=== PATIENT | male | born 1970 | race Two or more races ===

== ENCOUNTER 2018-04-30 17:57 | Emergency (ER) | payer SELFPAY ==
[~2018-04-30] VITALS: Ht 188 cm; Wt 131.5 kg
[2018-04-30] MEDS ORDERED: Norco 5mg/325mg tab ORAL ONE (18:30)
[2018-04-30] MEDS ORDERED: IBUPROFEN600 MG ORAL (19:28)
--- NOTE | 2018-04-30 19:28 | Emergency Room Report ---
History of Present Illness General Chief Complaint: Lower Extremity Injury Source: Patient Present Illness HPI 47-year-old male presents to the emergency department complaining of 7/10 in severity left knee pain s/p fall no LOC. S/ P fall from chair. Denies feeling of instability, pain exacerbated with walking and standing. Denies fevers, chills, erythema or increased temperature to palpation . Denies numbness tingling or loss of sensation or gross motor movements of the extremities, incontinence of bowel or bladder. Denies CP, Palpitations, LOC, AMS, dizziness, Changes in Vision, weakness or a sudden severe headache. Allergies: Coded Allergies: No Known Allergies (Unverified , 04/30/18) Patient History Past Medical History: see triage record Past Surgical History: none Pertinent Family History: none Reviewed Nursing Documentation: PMH: Agreed; PSxH: Agreed Nursing Documentation-PMH Past Medical History: No History, Except For Hx Diabetes: Yes Review of Systems All Other Systems: negative except mentioned in HPI Physical Exam Vital Signs Date Time Temp Pulse Resp B/P (MAP) Pulse Ox O2 Delivery O2 Flow Rate FiO2 04/30/18 18:02 98.9 100 15 163/80 95 Room Air 99.0 Sp02 EP Interpretation: reviewed, normal General Appearance: no apparent distress, alert, GCS 15, non-toxic Head: normocephalic, atraumatic Eyes: bilateral eye normal inspection, bilateral eye PERRL ENT: hearing grossly normal, normal voice Neck: full range of motion Respiratory: lungs clear, normal breath sounds, speaking full sentences Cardiovascular #1: regular rate, rhythm Musculoskeletal: back normal, gait/station normal - compensatory with cane assistance, normal range of motion, other - no increased laxity upon varus or valgus stressing, negative anterior and posterior drawer signs, tender - TTP to the Left knee with some swelling noted. Neurologic: alert, oriented x3, responsive, motor strength/tone normal, sensory intact, speech normal, grossly normal Psychiatric: judgement/insight normal Skin: normal color, no rash, warm/dry, well hydrated Lymphatic: no adenopathy Medical Decision Making PA Attestation Dr. Fortune is my supervising Physician whom patient management has been discussed with. Diagnostic Impression: Primary Impression: Left knee sprain Qualified Codes: S83.92XA - Sprain of unspecified site of left knee, initial encounter ER Course 47-year-old male presents to the emergency department complaining of 7/10 in severity left knee pain s/p fall no LOC. S/ P fall from chair. Denies feeling of instability, pain exacerbated with walking and standing. Denies fevers, chills, erythema or increased temperature to palpation . Denies numbness tingling or loss of sensation or gross motor movements of the extremities, incontinence of bowel or bladder. Denies CP, Palpitations, LOC, AMS, dizziness, Changes in Vision, weakness or a sudden severe headache. Ddx considered but are not limited to Fracture, dislocation, contusion, Sprain/ Strain/Spasm. Vital signs: are WNL, pt. is afebrile H&PE are most consistent with musculoskeletal injury will perform imaging to r/ o fractures/dislocations. ORDERS: - X-ray Left KNee - negative for fx, Dislocation, or significant soft tissue injury, per preliminary read in ED, and signed by ISABEL Valladares, my supervising physician has reviewed, and agrees with my interpretation. ED INTERVENTIONS: Mango wrap applied by analytical lab technician. Pt. remains neurovascularly intact. DISCHARGE: At this time pt. is stable for d/c to home. Will provide printed patient care instructions, and any necessary prescriptions. Care plan and follow up instructions have been discussed with the patient prior to discharge. Other X-Ray Diagnostic Results Other X-Ray Diagnostic Results : X-Ray ordered: Left knee # of Views/Limited Vs Complete: 3 View Indication: Pain EP Interpretation: Yes ISABEL Xray: Interpretation reviewed, by supervising MD, and agrees with findings. Interpretation: no dislocation, no soft tissue swelling, no fractures Impression: No acute disease Electronically Signed by: Jacki Valladares PA-C Last Vital Signs Date Time Temp Pulse Resp B/P (MAP) Pulse Ox O2 Delivery O2 Flow Rate FiO2 04/30/18 18:45 98.9 04/30/18 18:02 100 15 163/80 95 Room Air Disposition: HOME, SELF-CARE Condition: Stable Scripts Ibuprofen* (MOTRIN*) 600 Mg Tablet 600 MG ORAL THREE TIMES A DAY, #30 TAB 0 Refills Prov: Jacki Valladares 04/30/18 Referrals: NOT CHOSEN IPA/MD,REFERRING (PCP) Patient Instructions: Knee Sprain Additional Instructions: Take medications as directed. Follow up with a Primary Care Provider in 3-5 days, even if your symptoms have resolved. --Please review list of primary care clinics, if you do not already have a primary care provider Return sooner to ED if new symptoms occur, or current symptoms become worse. - Please note that this Emergency Department Report was dictated using [employer] lead lineman technology software, occasionally this can lead to erroneous entry secondary to interpretation by the dictation equipment. Jacki Valladares Apr 30, 2018 19:28
[2018-04-30 19:38] VITALS: BP 163/80
--- NOTE | 2018-05-01 11:11 | Diagnostic Imaging Report ---
Indication: Knee Pain 3 views of the left knee were obtained. Findings: No acute fracture, malalignment, or joint effusion are identified. Joint space is relatively well-maintained. Mild joint space narrowing and osteophytes noted. Impression: Negative for acute injury. Arthrosis
== END 2018-04-30 20:04 | disposition home or self-care (01) ==
LOC: EMR 19:00
DX: S83.92XA Sprain of unspecified site of left knee, initial encounter (principal); W07.XXXA Fall from chair, initial encounter; Y93.9 Activity, unspecified; Y92.9 Unspecified place or not applicable; E11.9 Type 2 diabetes mellitus without complications
CPT/HCPCS: 99283

== ENCOUNTER 2019-04-29 19:44 | Emergency (ER) | payer SELFPAY ==
[~2019-04-29] VITALS: Ht 188 cm; Wt 128.4 kg
[~2019-04-29 19:44] MED LIST: IBUPROFEN600 MG ORAL
--- NOTE | 2019-04-29 20:25 | NUR ---
ED Nurse Note: patient presents with complaints of abdominal pain onthe right flank after moving boxs and history of injury to the area. Patient reports history of DMII.
[2019-04-29 20:26] VITALS: BP 193/94
[2019-04-29] MEDS ORDERED: Lisinopril 10mg tab ORAL ONE (20:45)
[2019-04-29 21:13] LABS: BASOPHILS % (AUTO) 1.7 % (0.0-2.0); EOSINOPHILS % (AUTO) 1.8 % (0.0-3.0); HEMATOCRIT 48.8 % (42.0-52.0); HEMOGLOBIN 16.9 G/DL (14.2-18.0); LYMPHOCYTES % (AUTO) 38.5 % (20.0-45.0); MEAN CORPUSCULAR VOLUME 88 FL (80-99); MONOCYTES % (AUTO) 10.3 % (1.0-10.0); NEUTROPHILS % (AUTO) 47.6 % (45.0-75.0); PLATELET COUNT 347 K/UL (150-450); RED BLOOD COUNT 5.52 M/UL (4.70-6.10); RED CELL DISTRIBUTION WIDTH 10.7 % (11.6-14.8); WHITE BLOOD COUNT 10.3 K/UL (4.8-10.8)
[2019-04-29] MEDS ORDERED: Lisinopril 10mg tab ONE (21:17)
[2019-04-29 21:19] LABS: APPEARANCE,URINE CLEAR; BILIRUBIN, URINE NEGATIVE (NEGATIVE); COLOR,URINE PALE YELLOW; GLUCOSE, URINE (UA) 4+ (NEGATIVE); KETONES,URINE NEGATIVE (NEGATIVE); LEUKOCYTE ESTERASE ,URINE 1+ (NEGATIVE); NITRITE,URINE NEGATIVE (NEGATIVE); PH,URINE 5 (4.5-8.0); PROTEIN,URINE NEGATIVE (NEGATIVE); UROBILINOGEN,URINE NORMAL MG/DL (0.0-1.0)
[2019-04-29 21:26] LABS: ANION GAP 11 mmol/L (5-15); BLOOD UREA NITROGEN 13 mg/dL (7-18); CALCIUM 9.3 MG/DL (8.5-10.1); CARBON DIOXIDE 27 MMOL/L (21-32); CHLORIDE 103 MMOL/L (98-107); POTASSIUM 3.9 MMOL/L (3.5-5.1); SODIUM 140 MMOL/L (136-145)
[2019-04-29 21:31] LABS: ALANINE AMINOTRANSFERASE 33 U/L (12-78); ALBUMIN 3.5 G/DL (3.4-5.0); ALBUMIN/GLOBULIN RATIO 0.9 (1.0-2.7); ALKALINE PHOSPHATASE 94 U/L (46-116); ASPARTATE AMINO TRANSFERASE 10 U/L (15-37); BILIRUBIN,TOTAL 0.3 MG/DL (0.2-1.0)
[2019-04-29 21:56] VITALS: BP 140/79
--- NOTE | 2019-04-29 21:57 | NUR ---
ED Nurse Note: Patient blood pressure responded well to anti-hypertensivve medication. vital signs stable and documented.
--- NOTE | 2019-04-29 22:02 | Emergency Room Report ---
History of Present Illness General Chief Complaint: Pain Source: Patient Present Illness HPI 48-year-old male with history of hypertension and diabetes both controlled here complaining of sudden onset of right-sided rib pain rating at 8 out of 10 that started 2 days ago. Patient reports that years ago he had an accident in the area however states similar pain at that site today after lifting heavy objects. Patient has not taken his lisinopril for couple weeks as he no longer has a primary care provider due to no insurance. Patient is running out of his metformin. Reports that he checks his sugar frequently and is within normal limits. Denies neuropathy, chest pain, palpitation, abdominal pain, nausea vomiting, headache and dizziness, blurry vision. Patient has not taken medication for pain. Denies tingling or numbness. Denies urinary symptoms. Allergies: Coded Allergies: No Known Allergies (Unverified , 04/30/18) Patient History Past Medical History: see triage record Past Surgical History: unable to obtain Pertinent Family History: none Immunizations: UTD Reviewed Nursing Documentation: PMH: Agreed; PSxH: Agreed Nursing Documentation-PMH Past Medical History: No History, Except For Hx Hypertension: Yes Hx Diabetes: Yes Review of Systems All Other Systems: negative except mentioned in HPI Physical Exam Vital Signs Date Time Temp Pulse Resp B/P (MAP) Pulse Ox O2 Delivery O2 Flow Rate FiO2 04/29/19 19:51 98.2 97 16 193/94 (127) 97 Room Air Sp02 EP Interpretation: reviewed, abnormal - Elevated blood pressure General Appearance: no apparent distress, alert, GCS 15, non-toxic Head: normocephalic, atraumatic Eyes: bilateral eye normal inspection, bilateral eye PERRL ENT: hearing grossly normal, normal pharynx, no angioedema, normal voice Neck: full range of motion, supple/symm/no masses Respiratory: chest non-tender, lungs clear, normal breath sounds, speaking full sentences Cardiovascular #1: regular rate, rhythm, no edema, no murmur Gastrointestinal: normal bowel sounds, non tender, soft, non-distended, no guarding, no rebound Rectal: deferred Genitourinary: normal inspection, no CVA tenderness Musculoskeletal: back normal, gait/station normal, normal range of motion, non- tender Neurologic: alert, oriented x3, responsive, motor strength/tone normal, sensory intact, speech normal Psychiatric: normal inspection, judgement/insight normal, memory normal Skin: no rash Lymphatic: normal inspection, no adenopathy Medical Decision Making PA Attestation All my diagnosis and treatment plans were reviewed ad discussed with my supervising physician Dr. Crawford Diagnostic Impression: Primary Impression: Thoracic myofascial strain Additional Impressions: Medication refill HTN (hypertension) Diabetes ER Course 48-year-old male with history of hypertension and diabetes both controlled here complaining of sudden onset of right-sided rib pain rating at 8 out of 10 that started 2 days ago. Patient reports that years ago he had an accident in the area however states similar pain at that site today after lifting heavy objects. Patient has not taken his lisinopril for couple weeks as he no longer has a primary care provider due to no insurance. Patient is running out of his metformin. Reports that he checks his sugar frequently and is within normal limits. Denies neuropathy, chest pain, palpitation, abdominal pain, nausea vomiting, headache and dizziness, blurry vision. Patient has not taken medication for pain. Denies tingling or numbness. Denies urinary symptoms. Ddx considered but are not limited to: OK, Angina, COPD, GERD, rib fracture, pneumothorax, pleural effusion, muscle strain, Vital signs: are WNL, pt. is afebrile H&PE are most consistent with muscle strength in the costochondral area, hypertension, diabetes ORDERS: EKG, Chest XR, CBC, CMP, UA, troponin Robaxin, ibuprofen, lisinopril, metformin ED INTERVENTIONS: Tylenol and lisinopril DISCHARGE: At this time pt. is stable for d/c to home. Will provide printed patient care instructions, and any necessary prescriptions. Care plan and follow up instructions have been discussed with the patient prior to discharge. Follow-up with your primary care provider take medication as directed if worsening symptoms return to the emergency room EKG Diagnostic Results Rate: normal Rhythm: NSR ST Segments: no acute changes Other Impression No acute ST changes Chest X-Ray Diagnostic Results Chest X-Ray Diagnostic Results : # of Views/Limited/Complete: 1 View Indication: Other EP Interpretation: Yes PA Xray: Interpretation reviewed, by supervising MD, and agrees with findings. Interpretation: no consolidation, no effusion, no pneumothorax Impression: No acute disease Electronically Signed by: Solange Samayoa PA-C Other X-Ray Diagnostic Results Other X-Ray Diagnostic Results : X-Ray ordered: Right-sided ribs # of Views/Limited Vs Complete: 3 View Indication: Pain EP Interpretation: Yes PA Xray: Interpretation reviewed, by supervising MD, and agrees with findings. Interpretation: no dislocation, no soft tissue swelling, no fractures Impression: No acute disease Electronically Signed by: Solange Samayoa PA-C Last Vital Signs Date Time Temp Pulse Resp B/P (MAP) Pulse Ox O2 Delivery O2 Flow Rate FiO2 04/29/19 21:49 98.2 04/29/19 21:14 193/94 04/29/19 20:26 82 16 97 Room Air Disposition: HOME, SELF-CARE Condition: Stable Patient Instructions: Diabetes Mellitus and Food, Hypertension, Muscle Strain Additional Instructions: Follow-up with her primary care provider take medication as directed if worsening symptoms return to the emergency room Solange Dowling Apr 29, 2019 22:02
[2019-04-29] MEDS ORDERED: METFORMIN HCL1000 M1 ORAL (22:04)
[2019-04-29] MEDS ORDERED: ROBAXIN-750750 MG PO (22:04)
[2019-04-29] MEDS ORDERED: IBU800 MG PO (22:04)
[2019-04-29] MEDS ORDERED: LISINOPRIL20 MG ORAL (22:04)
[2019-04-29 22:20] VITALS: BP 140/79
--- NOTE | 2019-04-29 22:20 | NUR ---
ED Nurse Note: Patient cleared for discharge, no s.s of acute distress, ID band and IV removed. Patient verbalized understanding of discharge instructions and was receptive to diabetes education. Patient departed with all belongings accompanied by his .
--- NOTE | 2019-04-30 12:50 | Diagnostic Imaging Report ---
Indication: Chest wall Trauma and right rib pain. Comparison: None Findings: 4 views of the right chest wall was obtained for evaluation of the ribs. There is no acute fracture identified. There is no soft tissue swelling demonstrated. The lung is essentially clear. The costophrenic angle is sharp. Other osseous structures visualized are unremarkable. Impression: Negative unilateral rib series
== END 2019-04-29 22:20 | disposition home or self-care (01) ==
LOC: EMR 20:35
DX: S29.011A Strain of muscle and tendon of front wall of thorax, initial encounter (principal); I10 Essential (primary) hypertension; E11.9 Type 2 diabetes mellitus without complications; Z76.0 Encounter for issue of repeat prescription; X58.XXXA Exposure to other specified factors, initial encounter; Y92.9 Unspecified place or not applicable
CPT/HCPCS: 36415; 80053; 81001; 82962; 84484; 85025; 93005; 99283